=== PATIENT | female | born 1975 | race African-American/Black ===

== ENCOUNTER 2016-10-07 12:49 | Emergency (ER) | payer OTHER ==
--- NOTE | ~2016-10-07 | EKG ---
PATIENT: HERNESTO CAMILO UNIT #: [id number] Ventricular Rate: 80 BPM Atrial Rate: 80 BPM P-R Interval: 156 ms QRS Duration: 82 ms Q-T Interval: 360 ms QTC Calculation(Bezet): 415 ms P [place]: 37 degrees Calculated R [place]: 31 degrees Calculated T [place]: 49 degrees Diagnosis Line: Normal sinus rhythm Diagnosis Line: Normal ECG Diagnosis Line: No previous ECGs available Diagnosis Line: Confirmed by LA RIOJAS MD ([id number]) on 10/09/2016 Diagnosis Line: 9:45:18 AM INTERPRETING MD: SHINE VILLATORO
--- NOTE | ~2016-10-07 | CR72 ---
[facility] A Service of [facility] & [facility] RADIOLOGY TEXT RESULTS PATIENT: HERNESTO CAMILO LOCATION: [facility] : 73 UNIT #: [id number] AGE: [address]: Forrest Urbano MD SEX: F ORDER DR: [id number] [facility] [address] [place], [place] [address] [id number] E MR#: [id number] Acc #: [id number] NAME: HERNESTO CAMILO : 1975 SEX: F STUDY DATE/TIME: 10/07/2016 11:58 UNIT: [facility] ROOM: STUDY DESCRIPTION: CR Chest Single View Portable Attending Physician: Forrest Urbano M.D. Ordering Physician: Forrest Urbano M.D. Primary Care Physician: Primary Care Physician No MEDICAL IMAGING REPORT This report is preliminary unless electronic signature is present EXAM Chest portable, 10/07/2016 11:58 hours HISTORY 41-year-old woman with shortness of air, chest and abdominal pain today. COMPARISON None FINDINGS Portable upright chest demonstrates normal cardiac, mediastinal and hilar contours. Lung volumes are slightly low with mild basilar vascular crowding. No definite acute pulmonary density or pleural effusion is seen. IMPRESSION There is mild basilar vascular crowding but no acute cardiopulmonary findings. There is no pleural effusion, pneumothorax or free air seen in the abdomen. Dictated by... Jessica Hall M.D. THIS IS AN ELECTRONICALLY VERIFIED REPORT Jessica Hall M.D. at 10/07/2016 2:29 PM Abel TD: 10/07/2016 13:17 JOB #: [id number] MEDICAL IMAGING REPORT Page 1 of 1 COPY
[2016-10-07 12:00] LABS: POC - CKMB <1.0 ng/mL (0.0-7.9); POC - TROPONIN <0.05 ng/mL (<=0.05)
[2016-10-07 12:10] LABS: BASOPHIL% 0.4 % (0-2.5); EOSINOPHIL# 0.1 X10e3 (0-0.7); EOSINOPHIL% 1.6 % (0.0-7.0); HEMATOCRIT 36.9 % (35.0-45.0); HEMOGLOBIN 11.7 gm/dL (12.0-16.0); LYMPHOCYTE# 1.9 X10e3 (1.0-3.5); LYMPHOCYTE% 23.9 % (17.0-45.0); MEAN CELL VOLUME 81.3 FL (83-96); MEAN CORPUSCULAR HEMOGLOBIN 25.7 PG (28-34); MEAN CORPUSCULAR HGB CONC 31.6 g/dL (30-36); MEAN PLATELET VOLUME 8.5 FL (6.5-11.5); MONOCYTE# 0.5 X10e3 (0-1.0); MONOCYTE% 6.9 % (3.0-12.0); NEUTROPHIL# 5.3 X10e3 (1.5-7.1); NEUTROPHIL% 67.2 % (40-75); PLATELET COUNT 300 X10e3 (140-420); RED BLOOD COUNT 4.53 X10e (3.90-5.30); RED CELL DISTRIBUTION WIDTH 14.9 % (11.0-15.5); WHITE BLOOD COUNT 7.9 X10e3 (4.0-10.5)
[2016-10-07 12:11] LABS: DIFF IND NO
[2016-10-07 12:22] LABS: PARTIAL THROMBOPLASTIN TIME 25.9 SECONDS (23.5-31.3); PROTHROMBIN TIME (PATIENT) 10.2 SECONDS (9.6-11.5)
[2016-10-07 12:38] LABS: ALBUMIN SERUM 3.9 g/dL (3.5-5.0); ALKALINE PHOSPHATASE 54 U/L (32-92); ALT (SGPT) 15 U/L (10-40); AST (SGOT) 19 U/L (10-42); BILIRUBIN,TOTAL 0.3 mg/dL (0.2-2.0); BLOOD UREA NITROGEN 13 mg/dL (9-23); BUN/CREATININE RATIO 18.57; CALCIUM SERUM 9.1 mg/dL (8.4-10.2); CARBON DIOXIDE 28 mmol/L (22-31); CHLORIDE 105 mmol/L (100-111); CREATININE SERUM 0.7 mg/dL (0.6-1.4); GLOM FILT RATE Estimated 123.9 mL/min (>60); GLUCOSE FASTING 84 mg/dL (70-110); POTASSIUM 3.9 mmol/L (3.5-5.1); SODIUM 140 mmol/L (135-145)
[2016-10-07 12:39] LABS: BILIRUBIN, DIRECT <0.1 mg/dL (0.0-0.2); BILIRUBIN,INDIRECT 0.2 mg/dL (0.0-0.9)
== END 2016-10-07 13:47 | disposition home or self-care (01) ==
LOC: CED 12:49
PROVIDERS: Emergency Medicine
DX: K21.9 Gastro-esophageal reflux disease without esophagitis (principal); I10 Essential (primary) hypertension; F17.200 Nicotine dependence, unspecified, uncomplicated
CPT/HCPCS: 36415; 71010; 80048; 80076; 82553; 84484; 85025; 85610; 85730; 93005; 99284